=== PATIENT | male | born 1965 | race Caucasian/White ===

== ENCOUNTER 2017-09-11 11:54 | Emergency (ER) | payer BC ==
--- NOTE | 2017-09-11 12:22 | EDM.PDOC ---
ED HPI GENERAL MEDICAL PROBLEM - General Chief Complaint: General Stated Complaint: PT SLEPT IN 4DAYS Time Seen by Provider: 09/11/17 11:57 Source of Information: Reports: Patient History Limitations: Reports: No Limitations - History of Present Illness INITIAL COMMENTS - FREE TEXT/NARRATIVE: HISTORY AND PHYSICAL: History of present illness: Patient is a 52-year-old male who presents to the emergency room with complaints of insomnia. He states he came up from [facility] and is currently on a long stretch of nights. Previously he had to take occasions to help alleviate his symptoms. He states he has not needed to take this medication in "quite some time". He denies any symptoms such as fever, chills, chest pain, shortness of breath or diaphoresis. Denies any abdominal pain, nausea, vomiting, diarrhea or constipation. He does state he uses caffeine frequently. Review of systems: As per history of present illness and below otherwise all systems reviewed and negative. Past medical history: As per history of present illness and as reviewed below otherwise noncontributory. Surgical history: As per history of present illness and as reviewed below otherwise noncontributory. Social history: No reported history of drug or alcohol abuse. Family history: As per history of present illness and as reviewed below otherwise noncontributory. Physical exam: General: Well-developed and well-nourished 52-year-old male. Alert and oriented. Nontoxic appearing and in no acute distress HEENT: Atraumatic, normocephalic, pupils equal and reactive bilaterally, negative for conjunctival pallor or scleral icterus, mucous membranes moist, throat clear, neck supple, nontender, trachea midline. No drooling or trismus noted. No meningeal signs Lungs: Clear to auscultation, breath sounds equal bilaterally, chest nontender. Heart: S1S2, regular rate and rhythm without overt murmur Abdomen: Soft, nondistended, nontender. Negative for masses or hepatosplenomegaly. Negative for costovertebral tenderness. Pelvis: Stable nontender. Genitourinary: Deferred. Rectal: Deferred. Skin: Intact, warm, dry. No lesions or rashes noted. Extremities: Atraumatic, negative for cords or calf pain. Neurovascular unremarkable. Neuro: Awake, alert, oriented. Cranial nerves II through XII unremarkable. Cerebellum unremarkable. Motor and sensory unremarkable throughout. Exam nonfocal. Notes: Patient states he has not slept in 4 days. Discussed doing lab work at this time. He denies/declines any diagnostics at this time. We discussed following up with a primary care provider for further management of this. BP is elevated, he states it is "because I haven't slept in days". He declines further evaluation and/or management of his high blood pressure reading. He voices understanding and is agreeable to plan of care. He denies any further questions at this time. Diagnostics: [] Therapeutics: [] Impression: Insomnia Plan: 1. Limited amount of Ambien will be prescribed for you. For further refills he will need to see her primary care provider. When taking this medication he will need to have at least 7 hours before planned awakening. 2. Please establish care with a primary care provider if you are going to continue to work here in the [facility]. Follow-up in the next 1-2 days. Return to the ED as needed and as discussed. Definitive disposition and diagnosis as appropriate pending reevaluation and review of above. Duration: Day(s): - Related Data Allergies Allergy/AdvReac Type Severity Reaction Status Date / Time No Known Allergies Allergy Verified 09/11/17 12:39 Home Meds: Home Meds Lisinopril 15 mg PO DAILY 09/11/17 [History] ED ROS GENERAL - Review of Systems Review Of Systems: ROS reveals no pertinent complaints other than HPI. ED EXAM, GENERAL - Physical Exam Exam: See Below (See dictation) Course - Vital Signs Last Recorded V/S: Last Vital Signs Temp 98.2 F 09/11/17 12:08 Pulse 107 H 09/11/17 12:08 Resp 18 09/11/17 12:08 BP 127/101 H 09/11/17 12:08 Pulse Ox 94 L 09/11/17 12:08 Departure - Departure Time of Disposition: 12:55 Disposition: Home, Self-Care 01 Clinical Impression: Insomnia Qualifiers: Insomnia type: unspecified Qualified Code(s): G47.00 - Insomnia, unspecified - Discharge Information Instructions: Insomnia Referrals: PCP,None [Primary Care Provider] - Forms: ED Department Discharge Additional Instructions: The following information is given to patients seen in the emergency department who are being discharged to home. This information is to outline your options for follow-up care. We provide all patients seen in our emergency department with a follow-up referral. The need for follow-up, as well as the timing and circumstances, are variable depending upon the specifics of your emergency department visit. If you don't have a primary care physician on staff, we will provide you with a referral. We always advise you to contact your personal physician following an emergency department visit to inform them of the circumstance of the visit and for follow-up with them and/or the need for any referrals to a consulting specialist. The emergency department will also refer you to a specialist when appropriate. This referral assures that you have the opportunity for follow-up care with a specialist. All of these measure are taken in an effort to provide you with optimal care, which includes your follow-up. Under all circumstances we always encourage you to contact your private physician who remains a resource for coordinating your care. When calling for follow-up care, please make the office aware that this follow-up is from your recent emergency room visit. If for any reason you are refused follow-up, please contact the [facility] Emergency Department at and asked to speak to the emergency department charge nurse. [facility] [address] [place] [address] 1. Limited amount of Ambien will be prescribed for you. For further refills he will need to see her primary care provider. When taking this medication he will need to have at least 7 hours before planned awakening. 2. Please avoid alcohol, caffeine use and tobacco use. When getting ready for bed make sure you have the lights turned off, in a dark room. Avoid any distractions that would keep you awake. 3. Please establish care with a primary care provider if you are going to continue to work here in the [facility]. Follow-up in the next 1-2 days. Return to the ED as needed and as discussed.
== END 2017-09-11 13:06 | disposition home or self-care (01) ==
LOC: MW.ED 11:54
DX: G47.00 Insomnia, unspecified (principal); Z79.899 Other long term (current) drug therapy
CPT/HCPCS: 99283